=== PATIENT | male | born 2000 ===

== ENCOUNTER 2019-06-30 20:21 | Emergency (ER) | payer OTHER, SELFPAY ==
[2019-06-30 20:27] VITALS: BP 124/62; PULSE 80; RESP 16; TEMP 36.7; O2SAT 100
--- NOTE | 2019-06-30 20:46 | W.ED.GENAD ---
Discharge Plan Disposition Patient Disposition: HOME Condition: Good Discharge Details Chief Complaint: Abd Prob Clinical Impression: Abdominal pain Primary Care Provider: Matilda,Local ED Provider: Don Torres Home Meds and New Rx's Prescriptions: No Action No Known Home Meds RF: 0 Discharge Instructions Instructions: Abdominal Pain (ED) Additional Instructions: At this point your vital signs are normal and your abdominal exam is benign/non-surgical. This may be related to pulled abdominal wall muscle. Recommend taking ibuprofen three times a day with food and using ice the area 3-4 times a day for the next few days. Take it easy and stick with bland diet for a day or two. If your pain gets significantly worse, you have persistent vomiting, you develop spiking fevers or any other concern return to ED. Follow up with your doctor when you return to [place]. Medical Decision Making Patient is afebrile with normal vital signs and a completely benign abdomen. Reports pain initially yesterday. It is fairly localized left periumbilical area but even that area is not tender. He feels that he burst something in his abdomen. If he had had 24 hours of perforation, I would expect surgical abdomen and shock. Suspect that this is probably just rectus muscle strain from snowboarding. Patient initially not comfortable with this and voiced same. While I clinically do not feel that he needs labs or imaging because of his degree of discomfort with that, I agreed to do them. Subsequently when I went back to discuss other questions I had he decided he did not want labs and CAT scan. No real explanation as to why he is so concerned and why he changed his mind. Continues to have a completely benign abdomen. Discussed using Motrin and ice to the area that is likely injured and see how he is overnight and into tomorrow. Rest and have a bland diet. He may be coming down with a GI bug given the vomiting. But he does not appear to have a surgical abdomen and does not exhibit any physical signs or symptoms of a perforation. He is given ibuprofen here. Told to return if he feels worse. Follow-up with his primary care physician in [place] when he returns. HPI General Mode of arrival: ambulatory. Date/Time Provider Initiated Documentation: 06/30/19 20:45. Limitations to Documentation: no limitations. Information obtained by: patient. HPI Narrative: Patient presents to the ED stating that he thinks he ruptured something in his stomach. Patient is up here visiting from [place] Reports feeling something pop in his abdomen yesterday. Did not feel well overnight but nothing specific. Was snowboarding again this morning but did not really feel well so stopped around noontime. He has had a couple episodes of vomiting. He has had no fever or diarrhea. States that the pain is centered around the left periumbilical area but radiates up all the way into his chest. He is afraid he ruptured his stomach and is leaking stomach acid into his abdomen. He is otherwise healthy. He takes no medications. He has had no previous surgeries. He does not appear to be in significant pain though he states he is in severe pain. Related Data Home Medications Medication Instructions Recorded Confirmed Unknown [No Known Home Meds] 06/30/19 06/30/19 Allergies Allergy/AdvReac Type Severity Reaction Status Date / Time No Known Allergies Allergy Unverified 06/30/19 20:31 General Stated Complaint: Abd Prob ANTWAN: 3 Review of Systems Narrative: As documented in HPI otherwise negative as below. Const: no fever, chills, weakness Resp: no cough, SOB, pleuritic pain CV: no CP, diaphoresis, edema, syncope GI: abdominal pain, vomiting; no nausea, diarrhea Neuro: no headache, numbness, focal weakness, confusion [facility] Medical History (Updated 06/30/19 @ 21:17 by Don Torres MD) No active medical problems (Acute) Surgical History (Updated 06/30/19 @ 21:17 by Don Torres MD) No significant past surgical history (Acute) Social History Smoking/Tobacco Use Status: Never Drug use: Occasionally Substance use type: marijuana Do you feel safe at home: Yes Do you feel safe in your relationship?: Yes Exam Narrative Exam Narrative: Vitals: Afebrile. Normal vitals and room air pulse ox. Const: WDWN male in NAD. HEENT: NC/AT. Normal facial exam. Eyes: Normal conjunctiva and sclera. Neck: Supple. Trachea midline. Lungs: Normal respiratory effort. Cor: RRR. Good radial pulses. GI: Completely soft and nondistended abdomen. There is no tenderness anywhere on abdominal exam. There are no peritoneal signs. There is no guarding or rebound. Neuro: A+O x 3. Normal speech, mentation, gait. Cranial nerves II - XII grossly intact. No gross motor or sensory deficit. Ext: No C/C/E. Skin: Warm and dry without rash. Course Vital Signs Vital signs: Vital Signs Temperature 98.1 F 06/30/19 20:27 Pulse 80 06/30/19 20:27 Respiratory Rate 16 06/30/19 20:27 Blood Pressure 124/62 06/30/19 20:27 Pulse Oximetry 100 06/30/19 20:27 Temperature 98.1 F 06/30/19 20:27 Temperature Source Skin 06/30/19 20:27 Pulse 80 06/30/19 20:27 Respiratory Rate 16 06/30/19 20:27 Blood Pressure 124/62 06/30/19 20:27 Blood Pressure Position Sitting 06/30/19 20:27 Pulse Oximetry 100 06/30/19 20:27 Oxygen Delivery Method Room Air 06/30/19 20:27 Oxygen Flow Rate 0 06/30/19 20:27 Pain Level 10 06/30/19 20:27
[2019-06-30] MEDS: Ibuprofen 600 MG TAB PO (20:58)
== END 2019-06-30 21:05 | disposition home or self-care (01) ==
PROVIDERS: Emergency Provider Emergency Medicine
DX: R10.33 Periumbilical pain (principal)
CPT/HCPCS: 80053; 83690; 99281; 83605; 85025